=== PATIENT | female | born 1995 | race Caucasian/White ===

== ENCOUNTER 2018-05-22 04:30 | Inpatient (IN) | payer MEDICAID ==
[2018-05-22] VITALS (44 sets, daily range): BP systolic 83–121; BP diastolic 9–77
[~2018-05-22] VITALS: Ht 167.6 cm; Wt 96.6 kg
--- NOTE | 2018-05-22 04:38 | NUR ---
PALMER ARCHULETA presented to unit via wheelchair from ED, accompanied by s/o, for INDUCTION. PALMER ARCHULETA weighed, gowned, voided, and to bed. EFHM and TOCO applied, VS taken. PALMER ARCHULETA oriented to bed controls, call light, TV, heat, and A/C controls.
[2018-05-22] MEDS ORDERED: LACTATED RINGERS 1,000 ML IV ONE ×4 (05:09→07:44)
--- NOTE | 2018-05-22 05:22 | NUR ---
Sunil Cowan was called. admission orders received.
[2018-05-22] MEDS ORDERED: OXYTOCIN/NORMAL SALINE 500 ML IV SCH ×2 (05:29→12:53)
[2018-05-22] MEDS ORDERED: OXYTOCIN/NORMAL SALINE 500 ML IV ONE (05:34)
[2018-05-22 05:35] LABS: BASOPHILS % (AUTO) 0 % (0-10); EOSINOPHILS # (AUTO) 0.3 10^3/uL (0.0-0.3); EOSINOPHILS % (AUTO) 3 % (0-10); HEMATOCRIT 34 % (35-52); HEMOGLOBIN 11.6 G/DL (11.5-16.0); LYMPHOCYTES % (AUTO) 27 % (12-44); MEAN CORPUSCULAR HEMOGLOBIN 29 PG (25-34); MEAN CORPUSCULAR HGB CONC 34 G/DL (32-36); MEAN CORPUSCULAR VOLUME 84 FL (80-99); MEAN PLATELET VOLUME 10.6 FL (7.4-10.4); MONOCYTES % (AUTO) 9 % (0-12); NEUTROPHILS % (AUTO) 61 % (42-75); PLATELET COUNT 329 10^3/uL (130-400); RED CELL DISTRIBUTION WIDTH 12.6 % (10.0-14.5); WHITE BLOOD COUNT 11.4 10^3/uL (4.3-11.0)
[2018-05-22] MEDS: LACTATED RINGERS 1,000 ML IV SCH ×2 (05:48→11:36)
[2018-05-22] MEDS ORDERED: CATHETER FLUSH 10 ML SYR IV SCH ×2 (06:00→14:00)
[2018-05-22 06:05] LABS: BILIRUBIN,URINE NEGATIVE (NEGATIVE); CLARITY,URINE CLEAR; COLOR,URINE YELLOW; GLUCOSE, URINE (UA) NEGATIVE (NEGATIVE); KETONES,URINE NEGATIVE (NEGATIVE); LEUKOCYTE ESTERASE ,URINE 1+ (NEGATIVE); NITRITE,URINE NEGATIVE (NEGATIVE); PH,URINE 6.5 (5-9); PROTEIN,URINE 1+ (NEGATIVE); UROBILINOGEN,URINE 1 MG/DL (NORMAL)
[2018-05-22] MEDS ORDERED: SUFENTA 0.6MCG/ML BUPIVA 0.125 100 ML ONE (06:05)
[2018-05-22 06:21] LABS: BACTERIA,URINE FEW /HPF; WBC,URINE 0-2 /HPF
[2018-05-22] MEDS ORDERED: fentaNYL INJECTION 100 MCG/2 ML AMP ONE (07:12)
--- NOTE | 2018-05-22 07:41 | History & Physical-OB ---
OB - Chief Complaint & HPI Date/Time Date of Admission: Date of Admission: May 22, 2018 at 04:30 Date seen by a Provider: May 22, 2018 Time Seen by a Provider: 07:35 Chief Complaint/History OB-Reason for Admission/Chief: Induction of Labor Hx : 2 Hx Para: 1 Expected Date of Delivery: May 27, 2018 Gestational Age in Weeks: 39 Indication for induction: other Admission Nurse Assessment Rev: Yes Allergies and Home Medications Allergies Coded Allergies: No Known Drug Allergies (Unverified , 05/22/18) Patient Home Medication List Home Medication List Reviewed: Yes OB - History Hx of Present Care: Yes Ultrasounds: Normal mid trimester US Obstetrical Complications: None Medical Complications: None Information Induced Hypertension: No Maternal Gestational Diabetes: No Hemorrhage: No Obstetrical History Hx : 2 Hx Para: 1 Hx # Term Pregnancies: 1 Hx # Pregnancies: 0 Number of Living Children: 1 Hx Termination: No Hx Multiple Gestation: No Hx Ectopic : No Hx Stillbirth: No Hx Complication: No Hx Induced Hypertens: No Hx Maternal Gestational Diabet: No Hx Hemorrhage: No Delivery History Hx Dystocia: No Hx Forceps Assisted Delivery: No Hx Vacuum Extraction Assisted: No Hx Placenta Abnormality: No Hx Distress: No Hx Large For Gestational Age I: No Hx Small for Gestational Age I: No Hx Section: No Hx Vaginal Delivery Post C-Sec: No Hx Blood Disorders: No Adverse Rxn to Tranfusion: No Patient Past Medical History Unremarkable Social History/Family History HIV/AIDS: No Recent Infectious Disease Expo: No Sexually Transmitted Disease: No Alcohol Use: Denies Use Recreational Drug Use: No Smoking Cessation: Unknown if ever smoked 2nd Hand Smoke Exposure: No Immunizations Hepatitis A: No Hepatitis B: No Tetanus Booster (TDap): Unknown Rubella: immune RPR/VDRL: Negative GBS Status: Negative HBsAG: Negative OB - Admission Exam Physical Exam HEENT: NCAT Heart: Rhythm Normal Lungs: Clear Abdomen: Gravid Extremities: Edema (Minimal) Reflexes: Normal Cervical Dilatation: 4cm Effacement: 75% Station: -2 Membranes: Intact Amniotic Fluid: Clear Heart Rate: 140's Accelerations: Accelerations Present Decelerations: No Decelerations Short Term Variability: Present Parasitology Teacher Variability: Average (6-25) Contractions on Admission: 6-10 Minutes Apart Intensity: Moderate Moya Scoring Tool (Modified) Dilation (cm): 3-4cm (2) Effacement (%): 51-79% (2) Descent/Station: -2 (1) Cervix Consistency: Medium(1) Cervix Position: Middle/Mid-Position (1) Add 1 point for: Each previous vaginal delivery (1) Moya Score: 8 Labs Laboratory Tests Test 05/22/18 05:00 05/22/18 05:56 Range/Units White Blood Count 11.4 H 4.3-11.0 10^3/uL Red Blood Count 4.05 L 4.35-5.85 10^6/uL Hemoglobin 11.6 11.5-16.0 G/DL Hematocrit 34 L 35-52 % Mean Corpuscular Volume 84 80-99 FL Mean Corpuscular Hemoglobin 29 25-34 PG Mean Corpuscular Hemoglobin Concent 34 32-36 G/DL Red Cell Distribution Width 12.6 10.0-14.5 % Platelet Count 329 130-400 10^3/uL Mean Platelet Volume 10.6 H 7.4-10.4 FL Neutrophils (%) (Auto) 61 42-75 % Lymphocytes (%) (Auto) 27 12-44 % Monocytes (%) (Auto) 9 0-12 % Eosinophils (%) (Auto) 3 0-10 % Basophils (%) (Auto) 0 0-10 % Neutrophils # (Auto) 7.0 1.8-7.8 X 10^3 Lymphocytes # (Auto) 3.0 1.0-4.0 X 10^3 Monocytes # (Auto) 1.0 0.0-1.0 X 10^3 Eosinophils # (Auto) 0.3 0.0-0.3 10^3/uL Basophils # (Auto) 0.0 0.0-0.1 10^3/uL Urine Color YELLOW Urine Clarity CLEAR Urine pH 6.5 5-9 Urine Specific [place] 1.010 L 1.016-1.022 Urine Protein 1+ H NEGATIVE Urine Glucose (UA) NEGATIVE NEGATIVE Urine Ketones NEGATIVE NEGATIVE Urine Nitrite NEGATIVE NEGATIVE Urine Bilirubin NEGATIVE NEGATIVE Urine Urobilinogen 1 NORMAL MG/DL Urine Leukocyte Esterase 1+ H NEGATIVE Urine RBC (Auto) NEGATIVE NEGATIVE Urine RBC NONE /HPF Urine WBC 0-2 /HPF Urine Squamous Epithelial Cells 10-25 H /HPF Urine Crystals NONE /LPF Urine Bacteria FEW H /HPF Urine Casts NONE /LPF Urine Mucus NEGATIVE /LPF Urine Culture Indicated NO OB - Assessment/Plan/Diagnosis Assessment Assessment: induction of labor Admission Dx Intrauterine at 39 2/7 weeks Admission Status: Inpatient Order (span 2 midnights) Reason for Inpatient Admission: Intrauterine expected to deliver today Plan Plan: Induction Induction Method: per Pitocin Protocol WAYNE KING DO May 22, 2018 07:41
[2018-05-22] MEDS ORDERED: EPIDURAL (SUFENTA 0.6MCG/ML BUPIVA 0.125%) 100 ML BAG EPI PRN (07:45)
[2018-05-22] MEDS ORDERED: NALOXONE 0.4 MG/ML 1 ML (NARCAN) VIAL IV PRN (07:45)
[2018-05-22] MEDS ORDERED: ONDANSETRON 4 MG/2 ML (SDV) Z0FRAN IV PRN (07:45)
[2018-05-22] MEDS ORDERED: FLU QUADRIvalent (5+ YOA) 2018-2019 (AFLURIA) 0.5 ML IM ONE (10:45)
--- NOTE | 2018-05-22 12:00 | NUR ---
called. update given on recent SVE. no new orders received @ time.
[2018-05-22] MEDS ORDERED: LIDOCAINE 1% INJ 20 ML 20 ML VIAL ONE (12:26)
--- NOTE | 2018-05-22 12:53 | OB Labor & Delivery Record ---
Vag Delivery Note Vag Delivery Note Date of Delivery: 05/22/18 Preoperative Diagnosis: Deb Rivera is a (22 /Para 2 / 1,Gestational Age (wks)39with [2/] Postoperative Diagnosis: Same Surgeon: WAYNE KING Rope Rider: [] Anesthesia: [Epidural] Delivery Type: [Normal Spontaneous Vaginal Delivery with Midline Episiotomy and Standard Repair] Findings: [Male] Viable [] , apgars [], weight [] Lacerations: Intact placenta with 3 vessel cord. No nuchal cord, body cord or shoulder dystocia Estimated Blood Loss: [300] ml Complications: None Condition: Stable Description of Procedure: The patient is a 22 year old female who presented [for induction of labor]. She was admitted and informed consent was obtained. Her labor course was unremarkable . She progressed to complete dilatation and began to push. She was then set up for delivery. The infant's head was delivered atraumatically in the [XOCHILT] position. The shoulders and remainder of the ' s body were then delivered without difficulty. Upon delivery, the head was held below the level of the perineum and the mouth and nares were bulb suctioned. The cord was doubly clamped and cut and the was handed off to the pediatric staff. An intact placenta with 3-vessel cord delivered via Joana and there was found to be minimal bleeding.~ Vigorous fundal massage was performed and the fundus was found to be firm. IV oxytocin was given. Examination of the vagina and perineum revealed a [midline episiotomy with no extension] laceration repaired in the usual fashion with 2-0 and 3-0 vicryl suture. Following the repair, sponge, instrument and needle counts were correct. Mom and baby were both in stable condition in the labor suite. Vitals - Labs Vital Signs - I&O Vital Signs Date Time Temp Pulse Resp B/P (MAP) Pulse Ox O2 Delivery O2 Flow Rate FiO2 05/22/18 07:00 80 18 115/9 (44) Room Air 05/22/18 06:30 75 18 107/69 (82) Room Air 05/22/18 06:15 83 18 107/68 (81) Room Air 05/22/18 06:00 82 18 111/68 (82) Room Air 05/22/18 05:45 97.9 83 18 115/66 (82) Room Air 05/22/18 04:55 82 18 117/67 (84) Room Air Labs Laboratory Tests 05/22/18 05:00: White Blood Count 11.4H, Red Blood Count 4.05L, Hemoglobin 11.6, Hematocrit 34L , Mean Corpuscular Volume 84, Mean Corpuscular Hemoglobin 29, Mean Corpuscular Hemoglobin Concent 34, Red Cell Distribution Width 12.6, Platelet Count 329, Mean Platelet Volume 10.6H, Neutrophils (%) (Auto) 61, Lymphocytes (%) (Auto) 27 , Monocytes (%) (Auto) 9, Eosinophils (%) (Auto) 3, Basophils (%) (Auto) 0, Neutrophils # (Auto) 7.0, Lymphocytes # (Auto) 3.0, Monocytes # (Auto) 1.0, Eosinophils # (Auto) 0.3, Basophils # (Auto) 0.0 05/22/18 05:56: Urine Color YELLOW, Urine Clarity CLEAR, Urine pH 6.5, Urine Specific [place] 1.010L, Urine Protein 1+H, Urine Glucose (UA) NEGATIVE, Urine Ketones NEGATIVE, Urine Nitrite NEGATIVE, Urine Bilirubin NEGATIVE, Urine Urobilinogen 1, Urine Leukocyte Esterase 1+H, Urine RBC (Auto) NEGATIVE, Urine RBC NONE, Urine WBC 0-2 , Urine Squamous Epithelial Cells 10-25H, Urine Crystals NONE, Urine Bacteria FEWH, Urine Casts NONE, Urine Mucus NEGATIVE, Urine Culture Indicated NO SEALSWAYNE DO May 22, 2018 12:53
[2018-05-22] MEDS ORDERED: MEASLES,MUMPS,RUBELLA 1 EA INJ SQ ONE (13:00)
[2018-05-22] MEDS ORDERED: WITCH HAZEL(TUCKS) 40 EA JAR TOP PRN (13:00)
[2018-05-22] MEDS ORDERED: oxyCODONE/APAP 5/325MG (PERCOCET 5) TABLET PO PRN (13:00)
[2018-05-22] MEDS ORDERED: TETANUS,DIPTH,PERTUSS P/F (BOOSTRIX) 0.5 ML VIAL IM ONE (13:00)
[2018-05-22] MEDS ORDERED: BENZOCAINE/MENTHOL (DERMOPLAST) 56 ML CAN TP PRN (13:00)
--- NOTE | 2018-05-22 13:55 | NUR ---
FFu/1. moderate-lt rubra noted. no clots expressed. andre-care offered. v-pad in place. Lt. leg remains heavy. denies c/o's @ time.
[2018-05-22] MEDS ORDERED: BUPIVACAINE 0.25% 30 ML (SENSORCAINE) VIAL ONE (14:16)
[2018-05-22] MEDS: IBUPROFEN 800 MG (MOTRIN) TAB PO SCH ×2 (15:00→22:10)
--- NOTE | 2018-05-22 17:00 | NUR ---
FFU/1. lt rubra noted, no clots expressed. andre-care offered. v-pad and panties in place.
--- NOTE | 2018-05-22 17:08 | NUR ---
pt transferred to room 312 via w/c with standby assist x2. Rt.leg remains heavy, unable to move without assist.
--- NOTE | 2018-05-22 18:00 | NUR ---
report given to BROOKS Humphrey.
[2018-05-22] MEDS: DOCUSATE SODIUM 100 MG (COLACE) CAP PO SCH (22:10)
[2018-05-23] MEDS: IBUPROFEN 800 MG (MOTRIN) TAB PO SCH ×3 (04:30→15:49)
[2018-05-23 05:54] LABS: BASOPHILS % (AUTO) 0 % (0-10); EOSINOPHILS # (AUTO) 0.4 10^3/uL (0.0-0.3); EOSINOPHILS % (AUTO) 3 % (0-10); HEMATOCRIT 31 % (35-52); HEMOGLOBIN 10.2 G/DL (11.5-16.0); LYMPHOCYTES # (AUTO) 3.7 X 10^3 (1.0-4.0); LYMPHOCYTES % (AUTO) 27 % (12-44); MEAN CORPUSCULAR HEMOGLOBIN 29 PG (25-34); MEAN CORPUSCULAR HGB CONC 33 G/DL (32-36); MEAN CORPUSCULAR VOLUME 86 FL (80-99); MEAN PLATELET VOLUME 10.2 FL (7.4-10.4); MONOCYTES # (AUTO) 1.2 X 10^3 (0.0-1.0); MONOCYTES % (AUTO) 9 % (0-12); NEUTROPHILS # (AUTO) 8.5 X 10^3 (1.8-7.8); NEUTROPHILS % (AUTO) 61 % (42-75); PLATELET COUNT 261 10^3/uL (130-400); RED CELL DISTRIBUTION WIDTH 12.5 % (10.0-14.5); WHITE BLOOD COUNT 13.9 10^3/uL (4.3-11.0)
--- NOTE | 2018-05-23 06:24 | Discharge Summary ---
Diagnosis/Chief Complaint Date of Admission May 22, 2018 at 04:30 Date of Discharge May 23, 2018 Discharge Date: May 23, 2018 Discharge Time: 13:00 Admission Diagnosis Admission Diagnosis Intrauterine at 39 2/7 weeks Discharge Diagnosis Intrauterine at 39 2/7 weeks--delivered Reason Hospital Visit with planned induction of labor Discharge Summary Procedures: Pitocin Induction of Labor Epidural Anesthesia Artificial Rupture of Membranes Normal Spontaneous Vaginal Delivery with Midline Episiotomy and Standard Repair Discharge Physical Examination Allergies: Coded Allergies: No Known Drug Allergies (Unverified , 05/22/18) Vitals & I&Os Vital Signs Date Time Temp Pulse Resp B/P (MAP) Pulse Ox O2 Delivery O2 Flow Rate FiO2 05/22/18 20:00 98.2 70 18 116/77 (90) 100 05/22/18 14:00 Room Air General Appearance: Alert, Oriented X3, Cooperative HEENT: PERRLA, EOMI Respiratory: Clear to Auscultation Cardiovascular: Regular Rate, No Murmurs Abdominal: Normal Bowel Sounds, Soft, No Tenderness Extremities: No Clubbing, No Cyanosis, No Edema Skin: No Rashes Neuro: Normal Speech Psych/Mental Status: Mental Status NL Hospital Course Was the Problem List Reviewed?: Yes Ms. Rivera was admitted for scheduled Pitocin Induction of Labor. She received an epidural for pain management while in labor. I artificially rupture her membranes. She progressed to complete. Over a midline episiotomy she delivered a health, viable male without complications. Her vital signs remained stable throughout her hospitalization. The remainder of her hospitalization was unremarkable. She will be discharged with prescriptions, instructions, and a follow up appointment. Pending Labs Laboratory Tests 05/23/18 05:45: White Blood Count 13.9, Red Blood Count 3.55, Hemoglobin 10.2, Hematocrit 31, Mean Corpuscular Volume 86, Mean Corpuscular Hemoglobin 29, Mean Corpuscular Hemoglobin Concent 33, Red Cell Distribution Width 12.5, Platelet Count 261, Mean Platelet Volume 10.2, Neutrophils (%) (Auto) 61, Lymphocytes (%) (Auto) 27 , Monocytes (%) (Auto) 9, Eosinophils (%) (Auto) 3, Basophils (%) (Auto) 0, Neutrophils # (Auto) 8.5, Lymphocytes # (Auto) 3.7, Monocytes # (Auto) 1.2, Eosinophils # (Auto) 0.4, Basophils # (Auto) 0.0 Discharge Condition at discharge Good and stable Instructions to patient/family Please see electronic discharge instructions given to patient. Discharge Medications Reviewed and agree with Discharge Medication list on patient's Discharge Instruction sheet Clinical Quality Measures DVT/VTE Risk/Contraindication: Risk Factor Score Per Nursin RFS Level Per Nursing on Admit: 1=Low/No VTE PPX WAYNE KING DO May 23, 2018 06:24
--- NOTE | 2018-05-23 06:29 | Discharge Inst-Women's Service ---
Discharge Inst-Women's Serv Depart Medication/Instructions New, Converted or Re-Newed RX: RX Given to Pt/Family Instructions Pelvic rest x 6 weeks. No heavy lifting, less than 20 lbs. No strenuous activities. Call with problems or questions. Final Diagnosis Intrauterine at 39 2/7 weeks--delivered Activity Activity: Activity as Tolerated Driving Instructions: No Driving for 1 Week NO SMOKING: NO SMOKING Nothing Inside Vagina: No Douching, No Long View, No Tampons Diet Discharge Diet: No Restrictions Symptoms to Report to : Bleeding Excessive, Pain Increased, Fever Over 101 Degrees F, Vaginal Bleeding Increase For Any Problems or Questions: Contact Your Physician Skin/Wound Care Infection Signs and Symptoms: Foul Odor of Wound, Increased Drainage, Temperature Above 101 F Operative Area Clean and Dry: Keep Incision Clean/Dry Stitches/Gabriel/Dermabond: Care of Stitches Bathing Instructions: WAYNE Gustafson DO May 23, 2018 06:29
[2018-05-23] MEDS ORDERED: IBUP-1780 PO (06:32)
[2018-05-23] MEDS ORDERED: DOCU100C37 PO (06:32)
[2018-05-23] MEDS ORDERED: OXYC1TAB87 PO (06:32)
[2018-05-23 06:45] VITALS: BP 100/62
--- NOTE | 2018-05-23 07:35 | NUR ---
Report given to Kari GUY
[2018-05-23 08:00] VITALS: BP 113/73
--- NOTE | 2018-05-23 08:00 | NUR ---
A.M. ASSESSMENT COMPLETED. VSS. CARING FOR IN ROOM.
[2018-05-23] MEDS: DOCUSATE SODIUM 100 MG (COLACE) CAP PO SCH (09:50)
--- NOTE | 2018-05-23 10:00 | NUR ---
SHOWERED WITHOUT PROBLEMS.
--- NOTE | 2018-05-23 12:00 | NUR ---
INFANT REMAINS IN ROOM. PT OFFERS NO COMPLAINTS.
--- NOTE | 2018-05-23 12:37 | Anesthesia-Regional Post-Op ---
Regional Patient Condition Mental Status: Alert, Oriented x3 Circulation: Same as Pre-Op Headache: Absent Sensation: Full Recovery Motor Block: Absent Post Op Complications Complications None Follow Up Care/Instructions Patient Instructions None needed. Anesthesia/Patient Condition Patient is doing well, no complaints, stable vital signs, no apparent adverse anesthesia problems. RAEGAN SHAH DO May 23, 2018 12:37
[2018-05-23 13:00] VITALS: BP 111/59
[2018-05-23] MEDS ORDERED: IBUPROFEN 800 MG (MOTRIN) TAB PO SCH (13:00)
--- NOTE | 2018-05-23 13:00 | NUR ---
STORK MEAL EATEN. PT WILL GO TO ROOMING IN TODAY.
--- NOTE | 2018-05-23 15:40 | NUR ---
RHOGAM 1 VIAL IM IN RIGHT VG SITE. SITE CLEAR.
[2018-05-23] MEDS ORDERED: TETANUS,DIPTH,PERTUSS P/F (BOOSTRIX) 0.5 ML VIAL IM ONE (15:42)
[2018-05-23] MEDS ORDERED: FLU QUADRIvalent (5+ YOA) 2018-2019 (AFLURIA) 0.5 ML IM ONE (15:42)
--- NOTE | 2018-05-23 16:00 | NUR ---
CONTINUES TO CARE FOR IN ROOM. GOOD INTERACTION NOTED. USING BREAST SHIELD FOR FEEDINGS.
--- NOTE | 2018-05-23 16:03 | NUR ---
TDAP AND FLU VACCINES GIVEN.
[2018-05-23 18:00] VITALS: BP 108/65
[2018-05-23 19:00] VITALS: BP 108/65
--- NOTE | 2018-05-23 19:00 | NUR ---
DISCHARGE INSTRUCTIONS REVIEWED WITH COPY TO PT. RXS GIVEN EARLIER FOR SPOUSE TO HAVE FILLED. STATES UNDERSTANDING OF ALL INSTRUCTIONS AND NEED TO F/U SCHEDULED AND NEEDED. PT DISMISSED FROM WS IN STABLE CONDITION TO ROOMING IN PARENT R/T HAVING TO STAY.
== END 2018-05-23 19:00 | disposition home or self-care (01) | DRG 807 ==
LOC: LDRP 04:30
PROVIDERS: ADMIT Obstetrics & Gynecology; ATTEND Obstetrics & Gynecology
PROC: 10E0XZZ Delivery of Products of Conception, External Approach (ICD-10-PCS; principal; 2018-05-22)
PROC: 0W8NXZZ Division of Female Perineum, External Approach (ICD-10-PCS; 2018-05-22)
PROC: 3E033VJ Introduction of Other Hormone into Peripheral Vein, Percutaneous Approach (ICD-10-PCS; 2018-05-22)
DX: O80 Encounter for full-term uncomplicated delivery (principal); Z3A.39 39 weeks gestation of pregnancy; Z37.0 Single live birth
CPT/HCPCS: 36415; 81000; 83033; 85025; 86850; 86900; 86901; 90471; 90686; 90715

== ENCOUNTER 2018-09-04 18:38 | Emergency (ER) | payer SELFPAY ==
[~2018-09-04] VITALS: Ht 170.2 cm; Wt 86.2 kg
[~2018-09-04 18:38] MED LIST: DOCU100C37 PO; IBUP-1780 PO; OXYC1TAB87 PO
[2018-09-04] MEDS ORDERED: DEXAMETHASONE 4 MG TAB (DECADRON) PO SCH (19:15)
--- NOTE | 2018-09-04 19:26 | ED Integumentary General ---
General Chief Complaint: Bite-Animal/Human/Insect Stated Complaint: RT SIDE RIB CAGE BUG BITE/STING Nursing Triage Note: BITE ON RIGHT SIDE, PAINFUL AND RED History of Present Illness Date Seen by Provider: Sep 04, 2018 Time Seen by Provider: 19:21 Initial Comments Patient believes she was bitten by something on Tuesday which would be 2 days ago. She said she felt a pinprick but did not see a spider or bug. She says since that time the wound has become more erythematous and slightly harder and now she has a rash on her left arm and chest. She says the rash is macular papular and pruritic. She says she has had some headache and nausea but no fevers vomiting abdominal pain or other systemic symptoms. She says she is healthy and her immunizations are up-to-date. She says there has been some drainage from the wound and has been placing predominant with continued yellowish thick drainage although there is no drainage present on my exam. She is in no obvious distress with normal vital signs. Allergies and Home Medications Allergies Coded Allergies: No Known Drug Allergies (Unverified , 05/22/18) Home Medications Docusate Sodium 100 Mg Capsule, 100 MG PO BID Prescribed by: WAYNE KING on 05/23/18 0632 Ibuprofen 800 Mg Tablet, 800 MG PO Q6H PRN for PAIN-MODERATE Prescribed by: WAYNE KING on 05/23/18 0632 Oxycodone HCl/Acetaminophen 1 Each Tablet, 1 TAB PO Q4HR PRN for PAIN-MODERATE Prescribed by: WAYNE KING on 05/23/18 0632 Patient Home Medication List Home Medication List Reviewed: Yes Review of Systems Review of Systems Constitutional: no symptoms reported EENTM: no symptoms reported Respiratory: no symptoms reported Gastrointestinal: No abdominal pain; nausea; No vomiting Genitourinary: no symptoms reported Musculoskeletal: no symptoms reported Skin: lesions, rash Psychiatric/Neurological: Headache All Other Systems Reviewed Negative Unless Noted: Yes Past Uslajqg-Qrbvjf-Owcdyp Hx Patient Social History 2nd Hand Smoke Exposure: No Recent Foreign Travel: No Contact w/Someone Who Travel: No Recent Infectious Disease Expo: No Recent Hopitalizations: No Immunizations Up To Date Tetanus Booster (TDap): Unknown Seasonal Allergies Seasonal Allergies: No Past Medical History Surgeries: Yes (utheral dilitation as child) Respiratory: No Cardiac: No Neurological: No Sexually Transmitted Disease: No HIV/AIDS: No Genitourinary: No Gastrointestinal: No Musculoskeletal: No Endocrine: No HEENT: No Cancer: No Psychosocial: No Integumentary: No Blood Disorders: No Adverse Reaction/Blood Tranf: No Family Medical History Diabetes mellitus (MGM) FH: heart disease (MGM) HEART Physical Exam Vital Signs Vital Signs - First Documented 09/04/18 19:10 Temp 98.2 Pulse 86 Resp 16 B/P (MAP) 118/74 (89) Pulse Ox 98 O2 Delivery Room Air Capillary Refill : Less Than 3 Seconds General Appearance: WD/WN, no apparent distress Cardiovascular: regular rate, rhythm Respiratory: no respiratory distress Gastrointestinal: normal bowel sounds, non tender, soft Neurologic/Psychiatric: alert, normal mood/affect, oriented x 3 Skin: other (right lateral abdomen has approximate 1 x 1 cm area of induration but no drainage noted there is surrounding 5 x 5 cm erythema that is nontender to palpation. Patient has macular papular rash on left inner arm and top of her left chest as well.) Progress/Results/Core Measures Results/Orders My Orders Orders - CORNELL GRAHAM DO Dexamethasone Tablet (Decadron Tablet) (09/04/18 19:15) Vital Signs/I&O 09/04/18 19:10 Temp 98.2 Pulse 86 Resp 16 B/P (MAP) 118/74 (89) Pulse Ox 98 O2 Delivery Room Air Blood Pressure Mean: 89 Progress Progress Note : Progress Note Patient with likely black spider bite versus other insect bite wound however based off her feeling a pinprick and the rash present with some headache and nausea I suspect she has a black spider bite. She does not appear toxic and she has no abdominal wall pain or rigidity. She may have a reaction to it with possible secondary abscess and cellulitis due to the wound. I recommended incision and drainage to evacuate any further abscess collection but she refused stating that she rather be started on antibiotics for the abscess. I will give her a dose of Decadron here to help reduce systemic inflammation. I told her the black spider bites can sometimes be toxic and required antivenom which required lab work and transfer. She says she has a child home and does not want to go through any testing or further treatment at this time but would like to try the steroid and antibiotic and then she said she would return with any new worsening symptoms. I told her what symptoms to look out for including worsening rash abdominal pain fevers vomiting neck stiffness or rigidity. Patient aware and agreeable with plan for discharge and verbalized understanding of the need for short-term follow-up and strict ED return precautions discussed as above. Departure Impression Primary Impression: Insect bite - wound Qualified Codes: S30.861A - Insect bite (nonvenomous) of abdominal wall, initial encounter; W57.XXXA - Bitten or stung by nonvenomous insect and other nonvenomous arthropods, initial encounter Additional Impressions: Abdominal wall abscess Rash and nonspecific skin eruption Disposition: HOME, SELF-CARE Condition: Stable Departure-Patient Inst. Referrals: NO,LOCAL PHYSICIAN (PCP) Primary Care Physician WAYNE KING DO (Family) Primary Care Physician Patient Instructions: Insect Bites and Stings Add. Discharge Instructions: All discharge instructions reviewed with patient and/or family. Voiced understanding. Take 600mg of ibuprofen every 6 hours for pain. You can also take tylenol. Warm soaks 4 times daily. Come back with any new or worsening symptoms. Thank you! Scripts Sulfamethoxazole/Trimethoprim (Bactrim Ds Tablet) 1 Each Tablet 1 EACH PO BID, #14 TAB Prov: CORNELL GRAHAM DO 09/04/18 CORNELL GRAHAM DO Sep 04, 2018 19:26
[2018-09-04] MEDS ORDERED: SULF1TAB35 PO (19:28)
[2018-09-04] MEDS ORDERED: DEXAMETHASONE 4 MG/ML SDV (DECADRON) ONE (20:03)
[2018-09-04] MEDS ORDERED: TRIM/SULFAMETH 160/800 (SEPTRA DS) TAB PO ONE ×2 (20:08→20:15)
[2018-09-04 20:15] VITALS: BP 118/74
[2018-09-04] MEDS ORDERED: DEXAMETHASONE 4 MG/ML SDV (DECADRON) PO ONE (20:15)
--- OUTSIDE RECORDS SUMMARY | 2018-09-05 02:04 | XMS REPORT ---
Author Author WAYNE KING Organization [facility] Address [address] [place] [address] Care Team Providers Care Rock Cutter Name Role Phone CHRISTINEWAYNE Unavailable PROBLEMS Unknown Problems ALLERGIES No Known Allergies ENCOUNTERS Encounter Location Date Diagnosis [address] [address] Jun, [address] [address] May, [address] [address] May, Morbid obesity E66.01 and Encounter for supervision of other normal , third trimester Z34.[address] [address] May, Morbid obesity E66.01 and Encounter for supervision of other normal , third trimester Z34.[address] [address] Apr, Encounter for supervision of other normal , third trimester Z34.83 and BMI 45.0-49.9, adult Z68.[address] [address] Mar, IMMUNIZATIONS No Known Immunizations SOCIAL HISTORY Never Assessed REASON FOR VISIT 2 wk ob fu PLAN OF CARE Activity Details Follow Up 1 Week Reason:Return Obstetrical Visit VITAL SIGNS Height 56in in 2018-05-09 Weight 217 lbs 2018-05-09 Temperature 98.2 degrees Fahrenheit 2018-05-09 Heart Rate 78 bpm 2018-05-09 Oximetry 98 % 2018-05-09 BMI 48.65 kg/m2 2018-05-09 Blood pressure systolic 124 mmHg 2018-05-09 Blood pressure diastolic 78 mmHg 2018-05-09 MEDICATIONS Unknown Medications RESULTS Name Result Date Reference Range UA OB DIP (IN HOUSE) Glucose negative Protein negative PROCEDURES Procedure Date Ordered Result Body Site URINE-NO MICRO May 09, 2018 INSTRUCTIONS MEDICATIONS ADMINISTERED No Known Medications
--- OUTSIDE RECORDS SUMMARY | 2018-09-05 02:04 | XMS REPORT | Continuity of Care Document ---
Author Organization Unknown Address Unknown Allergies There is no data. Medications There is no data. Problems There is no data. Procedures There is no data. Results There is no data. Encounters ACCT No. Visit Date/Time Discharge Status Pt. Type Provider Facility Loc./Unit Complaint [id number] 07/04/2018 13:30:00 07/04/2018 23:59:59 [facility]
== END 2018-09-04 20:15 | disposition home or self-care (01) ==
LOC: EDUNIT# 18:38 → ER FS 18:39
DX: S30.861A Insect bite (nonvenomous) of abdominal wall, initial encounter (principal); L02.211 Cutaneous abscess of abdominal wall; Z90.49 Acquired absence of other specified parts of digestive tract; W57.XXXA Bitten or stung by nonvenomous insect and other nonvenomous arthropods, initial encounter
CPT/HCPCS: 99283

== ENCOUNTER → 2019-12-21 | Outpatient (CLI) | payer MEDICAID ==
[~2019-12-21] MED LIST changes: +SULF1TAB35 PO
[2019-12-21 11:20] LABS: HEMATOCRIT 33 % (35-52); MEAN CORPUSCULAR HEMOGLOBIN 29 PG (25-34); MEAN CORPUSCULAR HGB CONC 34 G/DL (32-36); MEAN CORPUSCULAR VOLUME 86 FL (80-99); WHITE BLOOD COUNT 10.4 10^3/uL (4.3-11.0)
[2019-12-21 11:21] LABS: BASOPHILS % (AUTO) 0 % (0-10); EOSINOPHILS # (AUTO) 0.4 10^3/uL (0.0-0.3); EOSINOPHILS % (AUTO) 3 % (0-10); LYMPHOCYTES # (AUTO) 2.1 X 10^3 (1.0-4.0); LYMPHOCYTES % (AUTO) 20 % (12-44); MEAN PLATELET VOLUME 10.5 FL (7.4-10.4); MONOCYTES # (AUTO) 0.5 X 10^3 (0.0-1.0); MONOCYTES % (AUTO) 5 % (0-12); NEUTROPHILS # (AUTO) 7.3 X 10^3 (1.8-7.8); NEUTROPHILS % (AUTO) 70 % (42-75); PLATELET COUNT 313 10^3/uL (130-400)
== END ==
LOC: LAB FS 12-20 08:34
PROVIDERS: ATTEND Family Medicine
DX: Z34.82 Encounter for supervision of other normal pregnancy, second trimester (principal)
CPT/HCPCS: 36415; 82950; 85025; 86780; 86850

== ENCOUNTER → 2020-02-15 | Outpatient (CLI) | payer MEDICAID | LOC: LABNPT 15:11 | PROVIDERS: ATTEND Family Medicine | DX: Z34.93 Encounter for supervision of normal pregnancy, unspecified, third trimester (principal); Z3A.00 Weeks of gestation of pregnancy not specified | CPT/HCPCS: 87081 ==

== ENCOUNTER 2020-03-10 05:39 | Inpatient (IN) | payer MEDICAID ==
[~2020-03-10] VITALS: Ht 167 cm; Wt 102.5 kg
[2020-03-10] VITALS (49 sets, daily range): BP systolic 69–130; BP diastolic 35–79
--- NOTE | 2020-03-10 05:45 | NUR ---
PALMER ARCHULETA presented to unit via ambulation from ED, accompanied by s.o. for induction of labor. PALMER ARCHULETA weighed, gowned, voided, and to bed. EFHM and TOCO applied, VS taken. PALMER ARCHULETA oriented to bed controls, call light, TV, heat, and A/C controls.
[2020-03-10] MEDS ORDERED: AMPICILLIN FOR IV USE 2,000 MG in WATER (STERILE) FOR INJECTION 14.8 ML IV SCH (07:32)
[2020-03-10] MEDS ORDERED: AMPICILLIN 2,000 MG/14.8 ML (IV USE) ONE (07:38)
[2020-03-10] MEDS ORDERED: WATER (STERILE) FOR INJECTION 20 ML ONE (07:38)
[2020-03-10 07:44] LABS: BASOPHILS # (AUTO) 0.1 10^3/uL (0.0-0.1); BASOPHILS % (AUTO) 1 % (0-10); EOSINOPHILS # (AUTO) 0.2 10^3/uL (0.0-0.3); EOSINOPHILS % (AUTO) 2 % (0-10); HEMATOCRIT 32 % (35-52); HEMOGLOBIN 10.3 g/dL (11.5-16.0); LYMPHOCYTES # (AUTO) 2.8 10^3/uL (1.0-4.0); LYMPHOCYTES % (AUTO) 26 % (12-44); MEAN CORPUSCULAR HEMOGLOBIN 26 pg (25-34); MEAN CORPUSCULAR HGB CONC 32 g/dL (32-36); MEAN CORPUSCULAR VOLUME 81 fL (80-99); MONOCYTES # (AUTO) 0.7 10^3/uL (0.0-1.0); MONOCYTES % (AUTO) 6 % (0-12); NEUTROPHILS # (AUTO) 6.8 10^3/uL (1.8-7.8); NEUTROPHILS % (AUTO) 65 % (42-75); PLATELET COUNT 386 10^3/uL (130-400); WHITE BLOOD COUNT 10.6 10^3/uL (4.3-11.0)
[2020-03-10] MEDS ORDERED: D5 LR IV SOLUTION 1,000 ML IV SCH (07:45)
[2020-03-10] MEDS ORDERED: MINERAL OIL CONCENTRATE 99.9% 15 ML UDC TOP PRN (07:45)
[2020-03-10] MEDS ORDERED: OXYTOCIN PRE-MIX DRIP 500 ML IV SCH (07:45)
[2020-03-10] MEDS ORDERED: fentaNYL 2 mcg/ml BUPIVA 0.125 100 ML ONE (09:58)
--- NOTE | 2020-03-10 10:05 | NUR ---
ANESTHESIA TO BEDSIDE REVIEWING EPIDURAL PROCEDURE AND CONSENT OBTAINED.
[2020-03-10] MEDS ORDERED: ONDANSETRON 4 MG/2 ML (SDV) Z0FRAN IV PRN (10:45)
[2020-03-10] MEDS ORDERED: METOCLOPRAMIDE INJ 10 MG/2 ML (REGLAN) IV PRN (10:45)
[2020-03-10] MEDS ORDERED: EPIDURAL (fentaNYL 2 MCG/ML BUPIVA 0.125%)100 ML BAG EPI SCH (10:45)
[2020-03-10] MEDS ORDERED: diphenhydrAMINE 50 MG/ML INJ (BENADRYL) IV PRN (10:45)
[2020-03-10] MEDS ORDERED: LACTATED RINGERS 1,000 ML IV SCH (10:45)
[2020-03-10] MEDS ORDERED: NALOXONE 0.4 MG/ML 1 ML (NARCAN) VIAL IV PRN ×2 (10:45)
[2020-03-10] MEDS ORDERED: AMPICILLIN FOR IV USE 1,000 MG in WATER (STERILE) FOR INJECTION 7.4 ML IV SCH (11:45)
[2020-03-10] MEDS ORDERED: CATHETER FLUSH 10 ML SYR IV SCH ×2 (14:00→22:00)
--- NOTE | 2020-03-10 16:31 | History & Physical-OB ---
OB - Chief Complaint & HPI Date/Time Date of Admission: Date of Admission: Mar 10, 2020 at 05:39 Date seen by a Provider: Mar 10, 2020 Time Seen by a Provider: 16:20 Chief Complaint/History OB-Reason for Admission/Chief: Induction of Labor Hx : 3 Hx Para: 2 Expected Date of Delivery: Mar 17, 2020 Gestational Age in Weeks: 39 Gestational Age in Days: 0 Allergies and Home Medications Allergies Coded Allergies: No Known Drug Allergies (Unverified , 05/22/18) Home Medications Docusate Sodium 100 Mg Capsule, 100 MG PO BID Prescribed by: WAYNE KING on 05/23/18 0632 Ibuprofen 800 Mg Tablet, 800 MG PO Q6H PRN for PAIN-MODERATE Prescribed by: WAYNE KING on 05/23/18 0632 Oxycodone HCl/Acetaminophen 1 Each Tablet, 1 TAB PO Q4HR PRN for PAIN-MODERATE Prescribed by: WAYNE KING on 05/23/18 0632 Sulfamethoxazole/Trimethoprim 1 Each Tablet, 1 EACH PO BID Prescribed by: CORNELL GRAHAM on 09/04/181927 Patient Home Medication List Home Medication List Reviewed: Yes OB - History Hx of Present Care: Yes Ultrasounds: Normal mid trimester US Obstetrical Complications: None Medical Complications: None Obstetrical History Hx : 3 Hx Para: 2 Hx Termination: No Hx Total # of Abortions (Spona: 0 Hx Multiple Gestation: No Hx Stillbirth: No Hx Complication: No Hx Induced Hypertens: No Hx Maternal Gestational Diabet: No Delivery History Hx Dystocia: No Hx Large For Gestational Age I: No Hx Small for Gestational Age I: No Hx Section: No Hx Vaginal Delivery Post C-Sec: No Hx Blood Disorders: No Adverse Rxn to Tranfusion: No Patient Past Medical History Unremarkable Social History/Family History HIV/AIDS: No Recent Infectious Disease Expo: No Sexually Transmitted Disease: No Alcohol Use: Denies Use Recreational Drug Use: No 2nd Hand Smoke Exposure: Yes Immunizations Hepatitis A: No Hepatitis B: No Tetanus Booster (TDap): Unknown OB - Admission Exam Physical Exam Vitals: Vital Signs 03/10/20 03/10/20 10:38 11:05 Temp 36.4 Pulse 86 Resp 20 B/P (MAP) 104/63 (77) Pulse Ox 100 O2 Delivery Room Air HEENT: NCAT Heart: Rhythm Normal Lungs: Clear Abdomen: Gravid Extremities: Normal Reflexes: Normal Cervical Dilatation: 10cm Effacement: 100% Station: +2 Membranes: Ruptured Amniotic Fluid: Clear Heart Rate: 130's Accelerations: Accelerations Present Decelerations: Early Decelerations Short Term Variability: Present Fdc Variability: Average (6-25) Contractions on Admission: None Labs Laboratory Tests Test 03/10/20 06:15 03/10/20 11:00 Range/Units White Blood Count 10.6 4.3-11.0 10^3/uL Red Blood Count 4.01 3.80-5.11 10^6/uL Hemoglobin 10.3 L 11.5-16.0 g/dL Hematocrit 32 L 35-52 % Mean Corpuscular Volume 81 80-99 fL Mean Corpuscular Hemoglobin 26 25-34 pg Mean Corpuscular Hemoglobin Concent 32 32-36 g/dL Red Cell Distribution Width 12.8 10.0-14.5 % Platelet Count 386 130-400 10^3/uL Mean Platelet Volume 11.0 9.0-12.2 fL Immature Granulocyte % (Auto) 0 % Neutrophils (%) (Auto) 65 42-75 % Lymphocytes (%) (Auto) 26 12-44 % Monocytes (%) (Auto) 6 0-12 % Eosinophils (%) (Auto) 2 0-10 % Basophils (%) (Auto) 1 0-10 % Neutrophils # (Auto) 6.8 1.8-7.8 10^3/uL Lymphocytes # (Auto) 2.8 1.0-4.0 10^3/uL Monocytes # (Auto) 0.7 0.0-1.0 10^3/uL Eosinophils # (Auto) 0.2 0.0-0.3 10^3/uL Basophils # (Auto) 0.1 0.0-0.1 10^3/uL Immature Granulocyte # (Auto) 0.0 0.0-0.1 10^3/uL OB - Assessment/Plan/Diagnosis Assessment Assessment: induction of labor Admission Dx Induction of labor at 39 0/7 wga. Admission Status: Inpatient Order (span 2 midnights) Reason for Inpatient Admission: Induction. Plan Plan: Induction Other Plan Pitocin. AROM clear fluid. Epidural for pain. GBS positive- 2 doses of amp given. JUAN RAMON CARPENTER MD Mar 10, 2020 16:31
--- NOTE | 2020-03-10 16:36 | OB Labor & Delivery Record ---
Vag Delivery Note Vag Delivery Note Date of Delivery: 03/10/20 Preoperative Diagnosis: Deb Rivera is a (24 /Para 3 / 2,Gestational Age (wks)39with [0 days] Postoperative Diagnosis: Same Surgeon: JUAN RAMON CARPENTER Costume Cutter: [none] Anesthesia: [epidural] Delivery Type: [] Findings: [] Viable [female] , apgars [8/9], weight [7 pounds 9 ounces] Lacerations: Intact placenta with 3 vessel cord. Loose body cord. Estimated Blood Loss: [350] ml Complications: None Condition: Stable Description of Procedure: The patient is a 24 year old female who presented [for induction]. She was admitted and informed consent was obtained. Her labor course was remarkable for [nothing] She progressed to complete dilatation and began to push. She was then set up for delivery. The infant's head was delivered atraumatically in the [] position. The shoulders and remainder of the infant's body were then delivered without difficulty. Upon delivery, the head was held below the level of the perineum and the mouth and nares were bulb suctioned. The cord was doubly clamped and cut on maternal abdomen by father of the baby after 60 seconds. An intact placenta with 3-vessel cord delivered via Joana and there was found to be minimal bleeding.~ Vigorous fundal massage was performed and the fundus was found to be firm. IV oxytocin was given. Examination of the vagina and perineum revealed a [1st degree perineal heomstatic] laceration which was not repaired. Following the repair, sponge, instrument and needle counts were correct. Mom and baby were both in stable condition in the labor suite. Vitals - Labs Vital Signs - I&O Vital Signs Date Time Temp Pulse Resp B/P (MAP) Pulse Ox O2 Delivery O2 Flow Rate FiO2 03/10/20 11:05 86 20 104/63 (77) 100 Room Air 03/10/20 11:00 82 20 89/57 (68) 99 Room Air 03/10/20 10:55 91 20 69/38 (48) 100 Room Air 03/10/20 10:50 95 20 115/53 (73) 100 Room Air 03/10/20 10:47 86 20 98/58 (71) 100 Room Air 03/10/20 10:45 89 20 101/63 (76) 100 Room Air 03/10/20 10:40 86 20 101/57 (72) 100 Room Air 03/10/20 10:38 36.4 66 20 71/35 (47) 100 Room Air 03/10/20 10:35 101 20 89/49 (62) 100 Room Air 03/10/20 10:30 102 20 106/62 (77) 100 Room Air 03/10/20 10:15 89 20 118/70 (86) 100 Room Air 03/10/20 10:00 75 20 105/59 (74) Room Air 03/10/20 09:45 83 20 113/68 (83) Room Air 03/10/20 09:30 85 20 114/78 (90) Room Air 03/10/20 09:15 81 20 115/64 (81) Room Air 03/10/20 09:00 81 20 110/63 (79) Room Air 03/10/20 08:45 78 20 106/68 (81) Room Air 03/10/20 08:30 81 20 110/70 (83) Room Air 03/10/20 08:15 84 20 113/68 (83) Room Air 03/10/20 08:13 36.4 75 20 Room Air Labs Laboratory Tests 03/10/20 06:15: White Blood Count 10.6, Red Blood Count 4.01, Hemoglobin 10.3L, Hematocrit 32L, Mean Corpuscular Volume 81, Mean Corpuscular Hemoglobin 26, Mean Corpuscular Hemoglobin Concent 32, Red Cell Distribution Width 12.8, Platelet Count 386, Mean Platelet Volume 11.0, Immature Granulocyte % (Auto) 0, Neutrophils (%) (Auto) 65, Lymphocytes (%) (Auto) 26, Monocytes (%) (Auto) 6, Eosinophils (%) (Auto) 2, Basophils (%) (Auto) 1, Neutrophils # (Auto) 6.8, Lymphocytes # (Auto) 2.8, Monocytes # (Auto) 0.7, Eosinophils # (Auto) 0.2, Basophils # (Auto) 0.1, Immature Granulocyte # (Auto) 0.0 03/10/20 11:00: JUAN RAMON CARPENTER MD Mar 10, 2020 16:36
--- NOTE | 2020-03-10 16:37 | Discharge Inst-Women's Service ---
Discharge Inst-Women's Serv Depart Medication/Instructions New, Converted or Re-Newed RX: Transmitted to Pharmacy Problems Reviewed?: Yes Consults/Follow Up Orders/Referrals Follow up with Dr. Carpenter in 6 weeks. Activity Activity: Activity as Tolerated Driving Instructions: You May Drive NO SMOKING: NO SMOKING Nothing Inside Vagina: No Douching, No [place], No Tampons Diet Discharge Diet: No Restrictions Symptoms to Report to : Fever Over 101 Degrees F, Vaginal Bleeding Increase For Any Problems or Questions: Contact Your Physician JUAN RAMON CARPENTER MD Mar 10, 2020 16:37
[2020-03-10] MEDS ORDERED: MISOPROSTOL 200 MCG (CYTOTEC) TABLET ONE (16:42)
[2020-03-10] MEDS ORDERED: BENZOCAINE/MENTHOL (DERMOPLAST) 60 ML CAN TP PRN (16:45)
[2020-03-10] MEDS ORDERED: WITCH HAZEL(TUCKS) 40 EA JAR TOP PRN (16:45)
[2020-03-10] MEDS ORDERED: MEASLES,MUMPS,RUBELLA 1 EA INJ SQ ONE (16:45)
[2020-03-10] MEDS ORDERED: TETANUS,DIPTH,PERTUSS P/F (BOOSTRIX) 0.5 ML VIAL IM ONE (16:45)
[2020-03-10] MEDS ORDERED: MISOPROSTOL 200 MCG (CYTOTEC) TABLET PR NR (16:45)
[2020-03-10] MEDS: OXYTOCIN PRE-MIX DRIP 500 ML IV SCH ×2 (16:51→17:41)
[2020-03-10] MEDS: IBUPROFEN 600 MG (MOTRIN) TAB PO SCH (16:55)
--- NOTE | 2020-03-10 17:41 | NUR ---
3rd bag of pitocin hung as ordered for bleeding. reviewed plan of pitocin infusion with patient over next 4hrs. verbalized understanding. fundal massage. firmed with massage. U/0. small clot expressed. 75cc of additional blood post delivery. total ebl of 650cc. patient continues to deny dizziness or lightheadedness . vitals remain stable see flowsheet. remains at bedside. dinner trays served. no s/s of distress noted by this RN. patient's left leg remains heavy with limited ROM post epidural placement. continuing to monitor.
--- NOTE | 2020-03-10 19:30 | NUR ---
Assessment completed, bleeding light. No clots noted. Pt denies any needs. s/o at bedside. Will continue to monitor.
[2020-03-10] MEDS: DOCUSATE SODIUM 100 MG (COLACE) CAP PO SCH (19:37)
[2020-03-10] MEDS: ACETAMINOPHEN 500 MG TAB (TYLENOL) PO SCH (19:37)
[2020-03-11] MEDS: IBUPROFEN 600 MG (MOTRIN) TAB PO SCH ×4 (00:07→17:47)
[2020-03-11 02:57] VITALS: BP 101/57
[2020-03-11] MEDS: ACETAMINOPHEN 500 MG TAB (TYLENOL) PO SCH ×2 (02:57→11:17)
[2020-03-11 06:03] VITALS: BP 109/70
[2020-03-11 06:30] LABS: BASOPHILS # (AUTO) 0.1 10^3/uL (0.0-0.1); BASOPHILS % (AUTO) 1 % (0-10); EOSINOPHILS # (AUTO) 0.3 10^3/uL (0.0-0.3); EOSINOPHILS % (AUTO) 2 % (0-10); HEMATOCRIT 30 % (35-52); HEMOGLOBIN 9.4 g/dL (11.5-16.0); LYMPHOCYTES # (AUTO) 3.8 10^3/uL (1.0-4.0); LYMPHOCYTES % (AUTO) 31 % (12-44); MEAN CORPUSCULAR HEMOGLOBIN 26 pg (25-34); MEAN CORPUSCULAR HGB CONC 31 g/dL (32-36); MEAN CORPUSCULAR VOLUME 81 fL (80-99); MEAN PLATELET VOLUME 10.3 fL (9.0-12.2); MONOCYTES # (AUTO) 0.9 10^3/uL (0.0-1.0); MONOCYTES % (AUTO) 8 % (0-12); NEUTROPHILS # (AUTO) 7.3 10^3/uL (1.8-7.8); NEUTROPHILS % (AUTO) 59 % (42-75); PLATELET COUNT 326 10^3/uL (130-400); WHITE BLOOD COUNT 12.5 10^3/uL (4.3-11.0)
--- NOTE | 2020-03-11 06:55 | Anesthesia-Regional Post-Op ---
Regional Patient Condition Mental Status: Alert, Oriented x3 Circulation: Same as Pre-Op Headache: Absent Sensation: Full Recovery Motor Block: Absent Post Op Complications Complications None Follow Up Care/Instructions Patient Instructions None needed. Anesthesia/Patient Condition Patient is doing well, no complaints, stable vital signs, no apparent adverse anesthesia problems. No complications reported per nursing. MARCIA CARNES CRNA Mar 11, 2020 06:55
[2020-03-11] MEDS ORDERED: IBUP-1780 PO (07:04)
--- NOTE | 2020-03-11 07:08 | Discharge Summary ---
Diagnosis/Chief Complaint Date of Admission Mar 10, 2020 at 05:39 Date of Discharge Mar 11, 2019 Admission Diagnosis Admission Diagnosis Induction of labor at 39 0/7 wga. Discharge Diagnosis vaginal delivery at 39 0/7 wga. Problems/Diagnosis: (1) care following vaginal delivery Assessment & Plan: Patient did well. Nursing well. Bleeding controlled. (2) hemorrhage Assessment & Plan: Patient given 800 mcg rectal cytotec within an hour after delivery. Hemoglobin stable. Discharge Summary-OBS Procedures None. Discharge Physical Examination Allergies: Coded Allergies: No Known Drug Allergies (Unverified , 05/22/18) Vitals & I&Os Intake and Output 03/10/20 23:59 Intake Total 500 ml Balance 500 ml Vital Sign - Last 12Hours Date Time Temp Pulse Resp B/P (MAP) Pulse Ox O2 Delivery O2 Flow Rate FiO2 03/11/20 06:03 36.2 68 18 109/70 (83) 100 Room Air General Appearance: Alert, Oriented X3 HEENT: Atraumatic Respiratory: Clear to Auscultation Cardiovascular: Regular Rate Abdominal: Soft (fundus firm at umbilicus) Extremities: No Edema Skin: No Rashes Neuro: Normal Gait, Normal Speech Hospital Course Was the Problem List Reviewed?: Yes Uneventful course. Hemoglobin 9.4 at discharge. Labs Laboratory Tests 03/10/20 11:00: Coronavirus (COVID-19)(PCR) Negative 03/11/20 06:15: White Blood Count 12.5H, Red Blood Count 3.69L, Hemoglobin 9.4L, Hematocrit 30L, Mean Corpuscular Volume 81, Mean Corpuscular Hemoglobin 26, Mean Corpuscular Hemoglobin Concent 31L, Red Cell Distribution Width 12.9, Platelet Count 326, Mean Platelet Volume 10.3, Immature Granulocyte % (Auto) 0, Neutrophils (%) (Auto) 59, Lymphocytes (%) (Auto) 31, Monocytes (%) (Auto) 8, Eosinophils (%) (Auto) 2, Basophils (%) (Auto) 1, Neutrophils # (Auto) 7.3, Lymphocytes # (Auto) 3.8, Monocytes # (Auto) 0.9, Eosinophils # (Auto) 0.3, Basophils # (Auto) 0.1, Immature Granulocyte # (Auto) 0.0 Discharge Instructions to patient/family Please see electronic discharge instructions given to patient. Discharge Medications Reviewed and agree with Discharge Medication list on patient's Discharge Instruction sheet Clinical Quality Measures DVT/VTE Risk/Contraindication: Risk Factor Score Per Nursin RFS Level Per Nursing on Admit: 2=Moderate JUAN RAMON CARPENTER MD Mar 11, 2020 07:08
[2020-03-11 09:13] VITALS: BP 90/56
--- NOTE | 2020-03-11 09:13 | NUR ---
AM shift assessment completed and vital signs obtained, see interventions. Plan of care reviewed with patient. Patient verbalizes understanding and questions answered. Scheduled Colace PO given. Rhogam administered, see administration record. Patient refused TDAP. Shower supplies provided. Saline lock DC'd, tip intact.
[2020-03-11] MEDS: DOCUSATE SODIUM 100 MG (COLACE) CAP PO SCH (09:15)
[2020-03-11 11:53] VITALS: BP 107/66
[2020-03-11 17:47] VITALS: BP 110/71
--- NOTE | 2020-03-11 18:34 | NUR ---
Discharge instructions and medications reviewed with patient both written and verbally. Patient verbalizes understanding and questions answered. Prescription e-scribed to patient's pharmacy.
--- NOTE | 2020-03-11 18:56 | NUR ---
Patient discharged at this time via wheelchair and accompanied down to awaiting private vehicle by this RN. No signs or symptoms of distress noted.
== END 2020-03-11 18:56 | disposition home or self-care (01) | DRG 807 ==
LOC: LDRP 05:39
PROVIDERS: ADMIT Family Medicine; ATTEND Family Medicine
PROC: 10E0XZZ Delivery of Products of Conception, External Approach (ICD-10-PCS; principal; 2020-03-10)
PROC: 10907ZC Drainage of Amniotic Fluid, Therapeutic from Products of Conception, Via Natural or Artificial Opening (ICD-10-PCS; 2020-03-10)
DX: O80 Encounter for full-term uncomplicated delivery (principal); Z37.0 Single live birth; Z3A.39 39 weeks gestation of pregnancy; O70.0 First degree perineal laceration during delivery; O72.1 Other immediate postpartum hemorrhage; Z20.822 Contact with and (suspected) exposure to COVID-19
CPT/HCPCS: 36415; 83033; 85025; 86850; 86900; 86901; 87635